=== PATIENT | female | born 1970 | race Caucasian/White ===

== ENCOUNTER 2018-03-13 11:29 | Emergency (ER) | payer OTHER ==
[~2018-03-13] VITALS: Ht 157.5 cm; Wt 68.0 kg
[~2018-03-13 11:29] MED LIST: ACIPHEX 20 MG T20 M1 PO; CHANTIX0.5 MG PO; CIPROFLOXACIN500 M1 PO; FLAGYL500 MG PO; HYDROCODON-ACE1 EAC7 PO; LORTAB 5 MG/5001 TAB PO; NOHOMEMEDICATIONS; TOPROL XL25 MG PO; ZOFRAN 4 MG ORAL4 MG PO; ZOFRAN ODT4 MG PO
[2018-03-13 11:32] VITALS: BP 143/88
[2018-03-13] MEDS ORDERED: NORCO 5-325 TA1 EACH PO (11:43)
[2018-03-13] MEDS ORDERED: FLEXERIL PO (11:43)
== END 2018-03-13 12:00 | disposition home or self-care (01) ==
LOC: M.ERS 11:29
DX: S46.092A Other injury of muscle(s) and tendon(s) of the rotator cuff of left shoulder, initial encounter (principal); I10 Essential (primary) hypertension; F17.210 Nicotine dependence, cigarettes, uncomplicated; X50.0XXA Overexertion from strenuous movement or load, initial encounter; Y93.89 Activity, other specified; Y92.89 Other specified places as the place of occurrence of the external cause; Y99.8 Other external cause status

== ENCOUNTER → 2019-01-26 | Day surgery (SDC) | payer OTHER ==
[~2019-01-26] MED LIST changes: +FLEXERIL PO; +LISINOPRIL10 MG PO; +NORCO 5-325 TA1 EACH PO
--- NOTE | ~2019-01-26 | OP ---
[address] [address] OPERATIVE REPORT Name: TRINISRINIVAS MATA Room: [facility]#: [id number] Admission: 01/26/19 Attend Phys: Danii Elder MD Discharge: Date of : 70 Report #: [id number] THIS REPORT FOR: //name// CC: Lindsay Elder DATE OF SERVICE: 01/26/2019 PREOPERATIVE DIAGNOSIS: Right breast intraductal papilloma. POSTOPERATIVE DIAGNOSIS: Right breast intraductal papilloma. PROCEDURE: Right breast needle localized excision of papilloma. SURGEON: Danii Elder MD. DIRECT ENTRY MIDWIFE: JENNY Curran. COMPLICATIONS: None. ANESTHESIA: General anesthesia. ESTIMATED BLOOD LOSS: 5 mL. SPECIMENS REMOVED: Right breast papilloma. OTHER: Incision 5 cm in length, 3 cm from nipple, 7 o'clock position, periareolar. Clip and the lesion in the mammographic specimen. INDICATIONS: The patient is a 48-year-old female with imaging in 12/11/2018 and 12/16/2018 showing a tubular hypoechoic focus of duct ectasia with a nonmobile echo at 6 o'clock right breast 5 cm from nipple, also a lesion at the 8 o'clock, 5 cm from nipple. Biopsy on 12/19/2018 at [facility] of 6 o'clock was fibrocystic change and small sclerosing papilloma and 8 o'clock dilated duct with other benign changes. Risks and benefits of excision of the 6 o'clock lesion, papilloma were discussed with the patient. Indications for excision of papilloma were discussed with the patient and recommendations to do so. Risks and benefits for such were delineated in the H and P and the patient agreed to proceed. DESCRIPTION OF PROCEDURE: The patient was brought to the operating room after informed consent had been obtained. Preoperatively, she was taken to mammogram for wire localization of the 6 o'clock area. The patient was then placed under general anesthesia in the supine position with the right arm extended. The right breast and axilla were then prepped and [place]ed [place] [address] OPERATIVE REPORT Name: SRINIVAS FELIZ Room: [facility].#: [id number] Admission: 01/26/19 Attend Phys: Danii Elder MD Discharge: Date of : 70 Report #: [id number] Prior to skin incision, a combination of 1% lidocaine plain and 0.5% Marcaine with epinephrine was used. A periareolar skin incision was made with a knife. This was deepened into the subcutaneous tissues using the Bovie electrocautery. A path was created toward the wire exit site in the superficial mastectomy plane using the Bovie electrocautery. Once the wire was identified, it was grasped with 2 hemostats and brought into the incision. The Bovie electrocautery was then used to excise a lump of tissue surrounding the pathway of the wire. The biopsy site was encountered during dissection and the dissection was adjusted to account for this. Once completely removed, the specimen was labeled for orientation purposes. It was placed in the mammographic specimen tray and handed for mammographic evaluation. Mammogram did confirm that the lesion and the clip were indeed within the specimen. The wound bed was copiously irrigated with normal saline, was noted to be adequately hemostatic. The deeper tissues were reapproximated with a single interrupted suture of 3-0 Vicryl. The Jerod's ligaments were released to take off skin puckering related to this suture. The deep dermal layers were then closed with interrupted 3-0 Vicryl suture. Skin was closed with 4-0 Monocryl in a subcuticular manner. The wound was dressed with Dermabond dressing. The patient tolerated the procedure well. Sponge, lap and needle counts were correct x 2 at the end of the procedure. She was transferred to recovery in stable condition. By: [id number] Elder MD /mark
[2019-01-26 07:24] LABS: HEMATOCRIT 41.7 % (37.0-47.0); HEMOGLOBIN 14.3 gm/dL (12.0-15.0); MCHC 34.4 g/dL (28.0-37.0); MCV 90.2 fL (80.0-100.0); MPV 8.2 fl. (7.2-11.1); RBC 4.63 mil/uL (4.20-5.00); WBC 10.3 thou/uL (4.0-11.0)
[2019-01-26 07:33] LABS: ALBUMIN 3.6 g/dL (3.4-5.0); CALCIUM 8.6 mg/dL (8.5-10.1); CREATININE 0.8 mg/dL (0.6-1.3); POTASSIUM 3.7 mmol/L (3.5-5.1); TOTAL BILIRUBIN 0.3 mg/dL (<0.1-1.0)
--- NOTE | 2019-01-26 12:21 | EKG ---
[place] [address] ELECTROCARDIOGRAM REPORT Name: TRINIKELLEY Room: [facility]#: [id number] Admission: 01/26/19 Attend Phys: Danii Elder MD Discharge: Date of : 70 Report #: [id number] THIS REPORT FOR: //name// [facility] Test Date: 2019-01-26 Test Time: 07:27:54 Pat Name: SRINIVAS FELIZ Department: Room: Gender: F [employer]: [facility] : 1970 Requested By: Danii Elder Order Number: [id number] Reading MD: Blaine Montes Measurements Intervals [place] Rate: 63 P: 43 WV: 142 QRS: 10 QRSD: 85 T: 30 QT: 419 QTc: 429 Interpretive Statements Sinus rhythm Low voltage, precordial leads Compared to ECG 08/04/2015 13:30:09 Low QRS voltage now present Sinus bradycardia no longer present Electronically Signed On 01-26-2019 12:20:56 CDT by Blaine Montes [email or web address] <ELECTRONICALLY SIGNED> By: Blaine Montes MD, [facility] 01/26/19 1220 07 6 Blaine Montes MD, [facility] /EPI
--- NOTE | 2019-01-28 15:06 | PATH ---
[address] [address] PATHOLOGY RPT PROCEDURE Name: SARAI FELIZ MARIE Room: [facility].R.#: [id number] Admission: 01/26/19 Date of : 70 Discharge: Report #: [id number] Path Case #: [id number] [facility] Accession Number: [id number] . 01 Material submitted: . breast - RIGHT BREAST PAPILLOMA, LONG LATERAL SHORT SUPERIOR DOUBLE DEEP. Modifiers: right . 01 Clinical history: . Right breast papilloma . 02 Diagnosis: Right breast papilloma: - Benign breast tissue with residual sclerosing papilloma associated with calcification and adjacent to changes of prior biopsy, negative for atypia. See comment. (DENZEL:luis 01/28/2019) QTP/01/28/2019 . 02 Comment: The papilloma appears to be completely removed. (DENZEL:luis 01/28/2019) . 02 Electronically signed: . Nasir Wasserman MD, Pathologist NPI- [id number] . 01 Gross description: . The specimen is received in formalin, labeled "Sarai Feliz, right breast papilloma, long lateral, short superior, double deep", is a 7 g, oriented fibroadipose tissue with sutures: short = superior, long = lateral and double = deep. The specimen measures medial to lateral = 3.5 cm, superior to inferior = 2.2 cm and superficial to deep = 1.3 cm. The specimen is inked as follows: Superior = red, inferior = green, medial = orange, lateral = yellow, superficial = blue and deep = black. The specimen is serially sectioned from medial to lateral into 11 slices. (Slice #1 medial and slice #11 lateral margins) to reveal a coronado-brown, focally hemorrhagic, indurated mass with a possible previous biopsy site approximately measuring 3.0 x 2.2 x 1.3 cm (slice #3 to slice #11). The lesion abuts superficial, deep, superior, inferior, and lateral margins and is 0.6 cm from the medial margin. The remaining parenchyma is yellow and fatty. . The specimen is entirely submitted as follows: A1. Slice 1, medial margin, perpendicular sectioned A2-A9. Midportion, contiguous sections (slice #2 to #10) with possible previous biopsy site in A5-A6. A10. Slice 11, lateral margin, [place] [address] PATHOLOGY RPT PROCEDURE Name: SARAI FELIZ Room: [facility]#: [id number] Admission: 01/26/19 Date of : 70 Discharge: Report #: [id number] Path Case #: [id number] . Specimen excised at: Not provided, placed in formalin at: Not provided, formalin exposure: Cannot be determined. (SWS; 01/27/2019) SHS/SHS . 02 Pathologist provided ICD-10: D24.1 . 02 CPT . 679261 Specimen Comment: A courtesy copy of this report has been sent to Specimen Comment: [phone], . Specimen Comment: Report sent to / DR BE Performed at: 01 [facility] [address], [place] [id number] MD Sushant Huang MD Phone: [phone] Performed at: [address] [facility] [address] [address], [place] [id number] MD Nasir Wasserman MD Phone: [phone]
== END | disposition home or self-care (01) ==
LOC: M.SUR 06:58 → M.ULTRA 08:00 → EDSTATUS 08:00
PROVIDERS: Surgery
DX: D24.1 Benign neoplasm of right breast (principal); I10 Essential (primary) hypertension; Z90.711 Acquired absence of uterus with remaining cervical stump; Z98.890 Other specified postprocedural states; Z79.899 Other long term (current) drug therapy; Z79.891 Long term (current) use of opiate analgesic

== ENCOUNTER 2019-11-27 19:50 | Emergency (ER) | payer OTHER ==
[~2019-11-27] VITALS: Ht 157.5 cm; Wt 70.3 kg
[2019-11-27 21:37] VITALS: BP 181/99
== END 2019-11-27 21:37 | disposition home or self-care (01) ==
LOC: M.ERS 19:50
DX: S06.0X0A Concussion without loss of consciousness, initial encounter (principal); S30.0XXA Contusion of lower back and pelvis, initial encounter; F17.210 Nicotine dependence, cigarettes, uncomplicated; Z98.890 Other specified postprocedural states; Z90.711 Acquired absence of uterus with remaining cervical stump; W18.39XA Other fall on same level, initial encounter; Y93.89 Activity, other specified; Y92.89 Other specified places as the place of occurrence of the external cause; Y99.8 Other external cause status

== ENCOUNTER → 2021-04-05 | Outpatient (CLI) | payer OTHER | LOC: M.RAD 15:49 | PROVIDERS: ATTEND Nurse Practitioner Family | DX: Z12.31 Encounter for screening mammogram for malignant neoplasm of breast (principal) ==